=== PATIENT | female | born 1945 | race American Indian/Alaskan Native ===

== ENCOUNTER 2017-08-24 14:45 | Emergency (ER) | payer MEDICARE, MEDICAID ==
[2017-08-24 15:00] VITALS: BP 151/80
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
== END 2017-08-24 17:12 | disposition left against medical advice (07) ==
LOC: DL.ED 14:45
DX: S05.91XA Unspecified injury of right eye and orbit, initial encounter (principal); L08.9 Local infection of the skin and subcutaneous tissue, unspecified; I10 Essential (primary) hypertension; J45.909 Unspecified asthma, uncomplicated; Z98.890 Other specified postprocedural states; Z79.899 Other long term (current) drug therapy; Z88.8 Allergy status to other drugs, medicaments and biological substances; X58.XXXA Exposure to other specified factors, initial encounter
CPT/HCPCS: 80305; 81001; 99283

== ENCOUNTER 2020-08-07 06:50 | Emergency (ER) | payer MEDICARE, MEDICAID, OTHER ==
[2020-08-07] MEDS ORDERED: LORazepam 0.5 MG Tab PO ONE (07:11)
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
[2020-08-07 08:29] VITALS: BP 145/77; PULSE 95
== END 2020-08-07 08:30 | disposition home or self-care (01) ==
LOC: DL.ED 08:25
DX: F41.0 Panic disorder [episodic paroxysmal anxiety] (principal); J45.909 Unspecified asthma, uncomplicated; M19.90 Unspecified osteoarthritis, unspecified site; I10 Essential (primary) hypertension; Z79.899 Other long term (current) drug therapy; Z88.8 Allergy status to other drugs, medicaments and biological substances
CPT/HCPCS: 99285; A9270-GY

== ENCOUNTER 2021-06-25 05:21 | Emergency (ER) | payer MEDICARE, MEDICAID ==
--- NOTE | 2021-06-25 05:23 | EDM.PDOC ---
ED HPI GENERAL MEDICAL PROBLEM - General Chief Complaint: ENT Problem Stated Complaint: AMBULANCE Time Seen by Provider: 06/25/21 05:23 Source of Information: Reports: Patient, EMS, EMS Notes Reviewed, RN, RN Notes Reviewed - History of Present Illness INITIAL COMMENTS - FREE TEXT/NARRATIVE: Patient is a 75-year-old female who presents to ER per [facility] with complaint of nosebleed. Patient states she sleeps during the day and is awake at night. She states she was just getting ready to go to bed when she bent over and her nose began to bleed. She states she bled more than she has with nosebleeds in the past. Patient states she does drink alcohol on a daily basis due to chronic pain in her back. She states she was taken off of her pain medications and not allowed to take them. Patient states she does have a history of hypertension, asthma. Onset: Today, Sudden Nose Pain Score (Numeric/FACES): 10 - Related Data Allergies Allergy/AdvReac Type Severity Reaction Status Date / Time diphenhydramine Allergy Chest Verified 08/24/17 15:01 [From Sky] Presssure Home Meds: Home Meds Albuterol Sulfate [Ventolin Hfa] 2 puff INH Q6HR PRN 08/24/17 [History] Budesonide/Formoterol Fumarate [Symbicort 80-4.5 Mcg Inhaler] 2 puff INH DAILY 08/24/17 [History] Fluticasone Propionate [Flonase] 2 sprays NASBOTH DAILY 08/24/17 [History] Hydrocodone/Acetaminophen [Hydrocodon-Acetaminoph 7.5-325] 1 tab PO TID 08/24/17 [History] Losartan [Cozaar] 100 mg PO DAILY 08/24/17 [History] Pseudoephedrine HCl [Sudafed] 30 mg PO DAILY 08/24/17 [History] Past Medical History HEENT History: Reports: Impaired Vision Other HEENT History: wears glasses Cardiovascular History: Reports: Hypertension Respiratory History: Reports: Asthma Gastrointestinal History: Reports: Diverticulosis Genitourinary History: Reports: None 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 Musculoskeletal History: Reports: Arthritis Neurological History: Reports: None Psychiatric History: Reports: None Endocrine/Metabolic History: Reports: None Hematologic History: Reports: None Immunologic History: Reports: None Oncologic (Cancer) History: Reports: None Dermatologic History: Reports: None - Infectious Disease History Infectious Disease History: Reports: Chicken Pox, Measles, Mumps - Past Surgical History Head Surgeries/Procedures: Reports: None HEENT Surgical History: Reports: Tonsillectomy Female Surgical History: Reports: Section Social & Family History - Family History Family Medical History: No Pertinent Family History - Caffeine Use Caffeine Use: Reports: Coffee ED ROS ENT - Review of Systems Review Of Systems: Comprehensive ROS is negative, except as noted in HPI. ED EXAM, ENT - Physical Exam Exam: See Below Exam Limited By: No Limitations General Appearance: Alert, WD/WN, No Apparent Distress Eye Exam: Bilateral Eye: EOMI, Normal Inspection Ears: Normal External Exam, Hearing Grossly Normal Nose: Active Bleeding, Injected Turbinates Mouth/Throat: Normal Inspection, Normal Gums, Normal Lips, Normal Oropharynx, Normal Teeth Head: Atraumatic, Normocephalic Neck: Normal Inspection, Supple, Non-Tender, Full Range of Motion Respiratory/Chest: No Respiratory Distress, Lungs Clear, Normal Breath Sounds, No Accessory Muscle Use, Chest Non-Tender Cardiovascular: Normal Peripheral Pulses, Regular Rate, Rhythm, No Edema, No Gallop, No JVD, No Murmur, No Rub GI/Abdominal: Normal Bowel Sounds, Soft, Non-Tender (Female) Exam: Deferred Rectal (Female) Exam: Deferred Back: Normal Inspection, Decreased Range of Motion Extremities: Normal Inspection, Normal Range of Motion, Non-Tender, No Pedal Edema, Normal Capillary Refill Neurological: Alert, Oriented, Normal Cognition, No Motor/Sensory Deficits Psychiatric: Normal Affect, Normal Mood Skin: Warm, Dry, Intact, Normal Color, No Rash Course - Vital Signs Last Recorded V/S: Last Vital Signs Temp 98.9 F 06/25/21 05:22 Pulse 85 06/25/21 05:22 Resp 18 06/25/21 05:22 BP 150/94 H 06/25/21 05:22 Pulse Ox 95 06/25/21 05:22 - Orders/Labs/Meds Labs: Laboratory Tests 06/25/21 06/25/21 06/25/21 Range/Units 05:35 05:35 05:35 WBC 9.1 (5.0-10.0) 10^3/uL RBC 4.79 (4.2-5.4) 10^6/uL Hgb 14.5 (12.0-16.0) g/dL Hct 43.9 (37.0-47.0) % MCV 91.6 (80-100) fL MCH 30.3 (27.0-34.0) pg MCHC 33.0 (33.0-35.0) g/dL Plt Count 282 (150-450) 10^3/uL Neut % (Auto) 58.5 (42.2-75.2) % Lymph % (Auto) 29.8 (20.5-50.1) % [place] % (Auto) 7.9 (2-8) % Eos % (Auto) 3.4 H (1.0-3.0) % Baso % (Auto) 0.4 (0.0-1.0) % PT 10.2 (9.0-12.0) SEC INR 1.0 (0.9-1.2) Sodium 138 (136-145) mmol/L Potassium 3.2 L (3.5-5.1) mmol/L Chloride 100 (98-107) mmol/L Carbon Dioxide 27 (21-32) mmol/L Anion Gap 14.2 H (7-13) mEq/L BUN 11 (7-18) mg/dL Creatinine 0.78 (0.55-1.02) mg/dL Est Cr Clr Drug Dosing 54.35 mL/min Estimated GFR (MDRD) > 60 BUN/Creatinine Ratio 14.1 (No establ ref range) Glucose 124 H (70-99) mg/dL Calcium 8.2 L (8.5-10.1) mg/dL Total Bilirubin 0.3 (0.2-1.0) mg/dL AST 13 L (15-37) U/L ALT 22 (14-59) U/L Alkaline Phosphatase 78 (46-116) U/L Total Protein 7.3 (6.4-8.2) g/dL Albumin 3.5 (3.4-5.0) g/dL Globulin 3.8 Albumin/Globulin Ratio 0.9 Ethyl Alcohol 91 (0) mg/dL Meds: Medications Discontinued Medications Generic Name Dose Route Start Last Admin Trade Name Freq PRN Reason Stop Dose Admin Ondansetron HCl 4 mg 06/25/21 06:03 06/25/21 06:09 Ondansetron 4 Mg Tab.Dis PO 06/25/21 06:04 4 mg ONETIME ONE Administration - Re-Assessments/Exams Free Text/Narrative Re-Assessment/Exam: 06/25/21 06:31 Pressure was held at the bridge of the nose for 10 minutes. Bleeding did stop. Patient did cough up one blood clot. No active bleeding from the nose at this time, no bleeding down the back of the throat. Departure - Departure Time of Disposition: 06:45 Disposition: Home, Self-Care 01 Condition: Good Clinical Impression: Epistaxis - Discharge Information *PRESCRIPTION DRUG MONITORING PROGRAM REVIEWED*: No *COPY OF PRESCRIPTION DRUG MONITORING REPORT IN PATIENT JENIFFER: No Instructions: Nosebleed, [id number] Forms: ED Department Discharge Additional Instructions: Use a clean Q-tip and and Vaseline in the nose to keep moist Follow-up with your primary care provider Return to the ER with any worsening of symptoms or nosebleed that begins that will not stop. Use Afrin/lidocaine with epi nasal spray to the affected nostril up to 3 times Sepsis Event Note (ED) - Focused Exam Vital Signs: Vital Signs Temp Pulse Resp BP Pulse Ox 06/25/21 05:22 98.9 F 85 18 150/94 H 95
[2021-06-25 05:27] VITALS: BP 150/94; PULSE 85
[2021-06-25 06:02] LABS: ANION GAP 14.2 mEq/L (7-13); CHLORIDE,CL 100 mmol/L (98-107); SODIUM,NA 138 mmol/L (136-145)
[2021-06-25] MEDS ORDERED: Ondansetron 4 MG Tab.DIS PO ONE (06:03)
[2021-06-25] MEDS ORDERED: Oxymetazoline 0.05% Nasal Spray 30 ML Bottle NAS ONE (06:33)
[2021-06-25] MEDS ORDERED: Lidocaine 1% with EPINEPHrine 1:100,000 20 ML MDV INJECT ONE (06:34)
== END 2021-06-25 07:00 | disposition home or self-care (01) ==
LOC: DL.ED 05:21
DX: R04.0 Epistaxis (principal); I10 Essential (primary) hypertension; J45.909 Unspecified asthma, uncomplicated; Z88.8 Allergy status to other drugs, medicaments and biological substances; Z79.899 Other long term (current) drug therapy
CPT/HCPCS: 36415; 80053; 80307; 85025; 85610; 99283; A9270

== ENCOUNTER 2023-07-18 00:26 | Emergency (ER) | payer MEDICARE, MEDICAID ==
[2023-07-18] MEDS ORDERED: methylPREDNISolone Sodium Succinate 125 MG/2 ML SDV IVPUSH ONE (00:42)
[2023-07-18] MEDS ORDERED: Magnesium Sulfate/Water 2 GM in Premix Bag 1 BAG IV ONE (00:42)
[2023-07-18] MEDS ORDERED: Sodium Chloride 0.9% 10 ML Syringe FLUSH PRN (00:42)
[2023-07-18] MEDS ORDERED: Albuterol/Ipratropium 3.0-0.5 MG/3 ML Neb Soln NEB ONE (00:42)
[2023-07-18 01:59] VITALS: BP 113/67; PULSE 88
== END 2023-07-18 01:55 | disposition home or self-care (01) ==
LOC: DL.ED 00:26
DX: J44.1 Chronic obstructive pulmonary disease with (acute) exacerbation (principal); I10 Essential (primary) hypertension; Z88.8 Allergy status to other drugs, medicaments and biological substances
CPT/HCPCS: 71045; 96365; 96375; 99285; J2930; J3475; 99284; J3490; J7620-GY

== ENCOUNTER 2023-08-20 12:34 | Emergency (ER) | payer MEDICARE, MEDICAID ==
[2023-08-20 12:40] VITALS: BP 165/77; PULSE 76
== END 2023-08-20 13:22 | disposition home or self-care (01) ==
LOC: DL.ED 12:34
DX: J44.9 Chronic obstructive pulmonary disease, unspecified (principal); I10 Essential (primary) hypertension; Z88.1 Allergy status to other antibiotic agents; Z88.8 Allergy status to other drugs, medicaments and biological substances; Z79.899 Other long term (current) drug therapy; Z87.891 Personal history of nicotine dependence
CPT/HCPCS: 99285

== ENCOUNTER 2023-10-19 15:26 | Emergency (ER) | payer MEDICARE, MEDICAID ==
[2023-10-19] MEDS ORDERED: Take Home: Acetaminophen/HYDROcodone 325-5 MG, 5 Tab Pack PO ONE (17:12)
[2023-10-19 17:46] VITALS: BP 148/74; PULSE 72
== END 2023-10-19 17:46 | disposition home or self-care (01) ==
LOC: DL.ED 15:26
DX: M54.41 Lumbago with sciatica, right side (principal); G89.29 Other chronic pain; I10 Essential (primary) hypertension; J45.909 Unspecified asthma, uncomplicated; Z79.899 Other long term (current) drug therapy; Z88.1 Allergy status to other antibiotic agents; Z88.8 Allergy status to other drugs, medicaments and biological substances
CPT/HCPCS: 99283; A9270-GY

== ENCOUNTER 2023-10-23 10:42 | Emergency (ER) | payer MEDICARE, MEDICAID ==
[2023-10-23] MEDS ORDERED: Dexamethasone 4 MG/ML SDV IM ONE (11:21)
[2023-10-23 11:26] VITALS: BP 159/83; PULSE 77
== END 2023-10-23 11:47 | disposition home or self-care (01) ==
LOC: DL.ED 10:42
DX: M54.41 Lumbago with sciatica, right side (principal); J45.909 Unspecified asthma, uncomplicated; I10 Essential (primary) hypertension; Z79.899 Other long term (current) drug therapy; Z88.1 Allergy status to other antibiotic agents; Z88.8 Allergy status to other drugs, medicaments and biological substances
CPT/HCPCS: 96372; 99283; J1100

== ENCOUNTER 2025-05-19 15:03 | Emergency (ER) | payer MEDICARE, MEDICAID, OTHER ==
[2025-05-19 15:15] VITALS: BP 170/96; PULSE 65
== END 2025-05-19 16:08 | disposition home or self-care (01) ==
LOC: DL.ED 15:03
DX: J45.901 Unspecified asthma with (acute) exacerbation (principal); I10 Essential (primary) hypertension; Z88.1 Allergy status to other antibiotic agents; Z88.8 Allergy status to other drugs, medicaments and biological substances; Z79.899 Other long term (current) drug therapy
CPT/HCPCS: 99285

== ENCOUNTER 2025-08-16 12:32 | Emergency (ER) | payer MEDICARE, MEDICAID ==
[2025-08-16] MEDS ORDERED: Sodium Chloride 0.9% 10 ML Syringe FLUSH PRN (12:40)
[2025-08-16 12:51] LABS: PLATELET COUNT,PLT 222 10^3/uL (150-450); RED BLOOD CELL COUNT 4.96 10^6/uL (4.2-5.4); WHITE BLOOD CELL COUNT,WBC 9.2 10^3/uL (5.0-10.0)
[2025-08-16 12:55] LABS: BASOPHILS PERCENT AUTO 0.3 % (0.0-1.0); EOSINOPHILS PERCENT AUTO 2.2 % (1.0-3.0); LYMPHOCYTES PERCENT AUTO 27.3 % (20.5-50.1); MONOCYTES PERCENT AUTO 6.4 % (2-8); NEUTROPHILS PERCENT AUTO 63.8 % (42.2-75.2)
[2025-08-16 13:13] LABS: A/G RATIO 0.9; ALANINE AMINOTRANSFERASE,ALT 21.0 U/L (14-59); ASPARTATE AMNIOTRANSFERASE,AST 14.0 U/L (15-37); B-TYPE NATRIURETIC PEPTIDE,BNP 93.0 pg/ml (0-100); BILIRUBIN TOTAL 0.7 mg/dL (0.2-1.0); BLOOD UREA NITROGEN,BUN 21.0 mg/dL (7-18); CARBON DIOXIDE,CO2 25.0 mmol/L (21-32); CHLORIDE,CL 108.0 mmol/L (98-107); CREATININE 0.97 mg/dL (0.55-1.02); EST CRCL DRUG DOSING (CG) 35.37 mL/min; ESTIMATED GFR 58.0 mL/min (>=60); GLUCOSE RANDOM 137.0 mg/dL (70-99); POTASSIUM,K 4.1 mmol/L (3.5-5.1); PROTEIN TOTAL,TP 7.0 g/dL (6.4-8.2); SODIUM,NA 140.0 mmol/L (136-145)
[2025-08-16 13:14] LABS: EOSINOPHILS PERCENT MAN 2 % (1-3); LYMPHOCYTES PERCENT MAN 31 % (20-50); MONOCYTES PERCENT MAN 9 % (2-8); SEG NEUTROPHILS PERCENT MAN 58 % (42-75)
[2025-08-16 15:12] VITALS: BP 114/86; PULSE 76
[2025-08-16] MEDS: Heparin Sodium 5,000 Units/ML Vial IVPUSH ONE ×2 (16:06→16:11)
[2025-08-16] MEDS: Heparin Sodium/0.45% NaCl 25,000 UNITS/500 ML BAG IV SCH (16:06)
[2025-08-16 16:11] LABS: INR 1.0 (0.9-1.2)
[2025-08-16] MEDS: Iopamidol 755 Mg/ML 100 ML Bottle IVPUSH ONE (16:13)
== END 2025-08-16 17:05 ==
LOC: DL.ED 12:32
DX: I21.4 Non-ST elevation (NSTEMI) myocardial infarction (principal); R79.89 Other specified abnormal findings of blood chemistry; I10 Essential (primary) hypertension; Z88.1 Allergy status to other antibiotic agents; Z88.8 Allergy status to other drugs, medicaments and biological substances; Z79.899 Other long term (current) drug therapy
CPT/HCPCS: 36415; 71045; 80053; 83735; 83880; 84484; 85025; 85379; 85610; 93005; 96365; 99285; J1644; 93010

== ENCOUNTER 2025-09-10 17:12 | Emergency (ER) | payer MEDICARE, MEDICAID ==
[2025-09-10] MEDS ORDERED: Sodium Chloride 0.9% 10 ML Syringe FLUSH PRN (17:20)
[2025-09-10 17:42] LABS: BASOPHILS PERCENT AUTO 0.2 % (0.0-1.0); EOSINOPHILS PERCENT AUTO 0.6 % (1.0-3.0); LYMPHOCYTES PERCENT AUTO 16.1 % (20.5-50.1); MONOCYTES PERCENT AUTO 5.9 % (2-8); NEUTROPHILS PERCENT AUTO 77.2 % (42.2-75.2); PLATELET COUNT,PLT 241 10^3/uL (150-450); RED BLOOD CELL COUNT 5.04 10^6/uL (4.2-5.4); WHITE BLOOD CELL COUNT,WBC 8.8 10^3/uL (5.0-10.0)
[2025-09-10 17:57] LABS: INR 1.0 (0.9-1.2)
[2025-09-10 18:03] LABS: A/G RATIO 0.9; ALANINE AMINOTRANSFERASE,ALT 19.0 U/L (14-59); ASPARTATE AMNIOTRANSFERASE,AST 17.0 U/L (15-37); BILIRUBIN TOTAL 0.6 mg/dL (0.2-1.0); BLOOD UREA NITROGEN,BUN 19.0 mg/dL (7-18); CARBON DIOXIDE,CO2 25.0 mmol/L (21-32); CHLORIDE,CL 107.0 mmol/L (98-107); CREATININE 1.08 mg/dL (0.55-1.02); EST CRCL DRUG DOSING (CG) 31.76 mL/min; GLUCOSE RANDOM 124.0 mg/dL (70-99); POTASSIUM,K 4.5 mmol/L (3.5-5.1); PROTEIN TOTAL,TP 7.8 g/dL (6.4-8.2); SODIUM,NA 141.0 mmol/L (136-145)
[2025-09-10 18:11] LABS: ESTIMATED GFR 51.0 mL/min (>=60)
[2025-09-10 19:46] VITALS: BP 121/44; PULSE 64
== END 2025-09-10 19:30 | disposition home or self-care (01) ==
LOC: DL.ED 17:12
DX: R06.02 Shortness of breath (principal); I10 Essential (primary) hypertension; Z88.1 Allergy status to other antibiotic agents; Z88.8 Allergy status to other drugs, medicaments and biological substances; Z79.899 Other long term (current) drug therapy
CPT/HCPCS: 36415; 71045; 80053; 83735; 83880; 84484; 85025; 85610; 93005; 93010; 99284; 99285

== ENCOUNTER 2025-09-18 20:28 | Emergency (ER) | payer MEDICARE, MEDICAID ==
[2025-09-18] MEDS ORDERED: Sodium Chloride 0.9% 10 ML Syringe FLUSH PRN (20:50)
[2025-09-18] MEDS ORDERED: Nitroglycerin 0.4 MG Tab.SL SL PRN (20:50)
[2025-09-18 21:00] VITALS: BP 151/59; PULSE 76
[2025-09-18 21:26] LABS: BASOPHILS PERCENT AUTO 0.3 % (0.0-1.0); EOSINOPHILS PERCENT AUTO 2.3 % (1.0-3.0); LYMPHOCYTES PERCENT AUTO 20.6 % (20.5-50.1); MONOCYTES PERCENT AUTO 7.3 % (2-8); NEUTROPHILS PERCENT AUTO 69.5 % (42.2-75.2); PLATELET COUNT,PLT 245 10^3/uL (150-450); RED BLOOD CELL COUNT 4.70 10^6/uL (4.2-5.4); WHITE BLOOD CELL COUNT,WBC 9.4 10^3/uL (5.0-10.0)
[2025-09-18 21:41] LABS: A/G RATIO 1.0; ALANINE AMINOTRANSFERASE,ALT 21.0 U/L (14-59); ASPARTATE AMNIOTRANSFERASE,AST 13.0 U/L (15-37); BILIRUBIN TOTAL 0.5 mg/dL (0.2-1.0); BLOOD UREA NITROGEN,BUN 23.0 mg/dL (7-18); CARBON DIOXIDE,CO2 25.0 mmol/L (21-32); CHLORIDE,CL 104.0 mmol/L (98-107); CREATININE 1.1 mg/dL (0.55-1.02); EST CRCL DRUG DOSING (CG) 31.19 mL/min; GLUCOSE RANDOM 105.0 mg/dL (70-99); POTASSIUM,K 3.9 mmol/L (3.5-5.1); PROTEIN TOTAL,TP 7.0 g/dL (6.4-8.2); SODIUM,NA 139.0 mmol/L (136-145)
[2025-09-18 21:42] LABS: ESTIMATED GFR 50.0 mL/min (>=60)
[2025-09-18 21:46] LABS: B-TYPE NATRIURETIC PEPTIDE,BNP 79.0 pg/ml (0-100)
[2025-09-18 21:49] LABS: INR 1.0 (0.9-1.2); PTT,PARTIAL THROMBOPLSTIN TIME 25.9 SEC (22.0-34.0)
[2025-09-18 22:38] LABS: APPEARANCE,URINE CLEAR (CLEAR); GLUCOSE,URINE NEGATIVE (NEGATIVE); OCCULT BLOOD,URINE SMALL (NEGATIVE)
[2025-09-18 22:55] LABS: EPITHELIAL CELLS,URINE MODERATE /HPF (NOT SEEN)
== END 2025-09-18 23:54 | disposition home or self-care (01) ==
LOC: DL.ED 20:28
DX: R07.89 Other chest pain (principal); I10 Essential (primary) hypertension; J44.9 Chronic obstructive pulmonary disease, unspecified; Z87.891 Personal history of nicotine dependence; Z88.1 Allergy status to other antibiotic agents; Z88.8 Allergy status to other drugs, medicaments and biological substances; Z79.899 Other long term (current) drug therapy
CPT/HCPCS: 36415; 71045; 80053; 81001; 83735; 83880; 84484; 85025; 85610; 85730; 93005; 99285; A9270; 93010; 99284